=== PATIENT | male | born 1985 | race Caucasian/White ===

== ENCOUNTER 2018-07-24 21:20 | Emergency (ER) | payer OTHER ==
[2018-07-24] MEDS ORDERED: Tetan/Diph/Pertus SYR(Tdap)* 0.5 ML SYR(BOOSTRIX) use SYR IM ONE (23:26)
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
[2018-07-24 23:53] VITALS: BP 110/75
== END 2018-07-24 23:51 | disposition home or self-care (01) ==
LOC: UCEAST 21:20
DX: S06.0X0A Concussion without loss of consciousness, initial encounter (principal); S40.212A Abrasion of left shoulder, initial encounter; S40.211A Abrasion of right shoulder, initial encounter; S20.312A Abrasion of left front wall of thorax, initial encounter; S70.212A Abrasion, left hip, initial encounter; V19.9XXA Pedal cyclist (driver) (passenger) injured in unspecified traffic accident, initial encounter; Y93.55 Activity, bike riding; Y92.9 Unspecified place or not applicable
CPT/HCPCS: 90471; 90715; 99203; G0463